=== PATIENT | female | born 1955 | race Caucasian/White ===

== ENCOUNTER → 2019-08-01 | Outpatient (CLI) | payer SELFPAY ==
--- NOTE | 2019-08-04 08:03 | PE ---
Nuclear medicine PET/CT HISTORY: Lung carcinoma, initial Patient received 10.2 mCi F-18 FDG intravenously in delayed scanning was performed from the skull bas e to the mid thighs. Localization and attenuation correction CT scan was performed. No comparisons Postop changes are noted in the brain. Neck and chest: There is no evident cervical or supraclavicular adenopathy. Superior mediastinal eleazar opathy with associated hypermetabolic uptake, SUV 18, bilateral hilar adenopathy with SUV on the righ t 15, on the left 11.6, subcarinal adenopathy, SUV 12.2 prevascular adenopathy with associated hyperm etabolic uptake is noted, SUV 14.6. Large left lower lobe lung mass is present with associated hyperm etabolic uptake, SUV 16.4. There is a pericardial effusion. Coronary artery calcifications are presen t. No axillary adenopathy. An level posterior to the inferior aspect of the left hard adjacent to the aorta there is soft tissue mass present with associated hypermetabolic uptake, SUV 8.2. Subpleural n odular density is also present in the left lower lobe posteriorly with associated hypermetabolic upta ke. ABDOMEN: Bilateral adrenal enlargement is present with associated hypermetabolic uptake, SUV 15.7 on the right, 8.7 on the left. There is no retroperitoneal adenopathy, no evident liver mass. The level of the lesser curvature of the stomach suspect there is an enlarged node present, there is associated hypermetabolic uptake, SUV 6.6. Bowel uptake is felt likely to be physiologic. Osseous structures: The posterior right ilium shows a lytic mass, there is associated hypermetabolic uptake present, SUV 20.1. IMPRESSION: Findings consistent with metastatic disease.
== END | disposition home or self-care (01) ==
LOC: RADPETMAIN 11:40
PROVIDERS: ATTEND Internal Medicine Hematology & Oncology
DX: C34.32 Malignant neoplasm of lower lobe, left bronchus or lung (principal)
CPT/HCPCS: 78815; A9552

== ENCOUNTER → 2019-08-29 | Outpatient (CLI) | payer MEDICARE ==
--- NOTE | 2019-08-29 09:57 | CT ---
EXAMINATION TYPE: CT brain wo/w con DATE OF EXAM: 08/29/2019 COMPARISON: Previous PET/CT dated 08/01/2019. HISTORY: Malignant neoplasm of lower lobe, left bron CT DLP: 2161 mGycm Automated exposure control for dose reduction was used. FINDINGS: There is an area of encephalomalacia in the anterior temporal lobe. There are vascular clips in this location. There is no definite abnormal enhancement through this region. Otherwise Central structures are midline. There is no evidence of hydrocephalus. There is mild ex vac uo enlargement of the frontal horn of the left lateral ventricle. There is no mass effect, midline sh ift or intracranial blood. There is been a previous left temporal craniotomy. Visualized portions of the paranasal sinuses and m astoids are clear. IMPRESSION: 1. NO ACUTE INTRACRANIAL ABNORMALITY. 2. POSTSURGICAL CHANGE.
== END | disposition home or self-care (01) ==
LOC: RADCTMAIN 08:44
PROVIDERS: ATTEND Internal Medicine Hematology & Oncology
DX: C34.32 Malignant neoplasm of lower lobe, left bronchus or lung (principal); Z98.890 Other specified postprocedural states
CPT/HCPCS: 70470; Q9967

== ENCOUNTER → 2019-08-29 | Outpatient (CLI) | payer MEDICARE ==
--- NOTE | 2019-08-29 09:56 | CT ---
EXAMINATION TYPE: CT chest wo con DATE OF EXAM: 08/29/2019 COMPARISON: PET/CT dated 08/01/2019 HISTORY: Mesothelioma of pleura CT DLP: [address] of the chest was performed with lung and mediastinal window settings submitted. The la ck of contrast limits evaluation of the vascular, mediastinal and parenchymal structures including th e upper abdomen. LUNGS: Large lobulated left lower lobe mass with pleural extension which is difficult to measure sixto ures an estimated 7.1 x 7.8 x 4.9 cm. There are several adjacent satellite nodules identified measuri ng 3.5 x 1.8 cm inferior laterally additional nodule is seen cranially measuring 1.9 cm. Left hilar c onglomerate adenopathy measures 3.9 x 2.2 cm inferiorly and 3.6 x 2.2 cm superiorly. Additional nodul e 1.3 cm caudal to the dominant mass and 1.6 cm medially with pleural base. 4 mm nodule identified ri ght lower lobe laterally on image 50. MEDIASTINUM/EASTON: 3.0 x 4.9 cm right paratracheal adenopathy identified is progressive. Subcarinal ad enopathy is noted measured 2.5 x 3.3 cm. AP window adenopathy measures 1.8 cm short axis. Low left pa ratracheal adenopathy measures 1.8 cm. Precarinal adenopathy measures 1.8 cm. UPPER ABDOMEN: Bilateral adrenal masses noted measuring 1.9 x 1.85 cm and 2.4 x 3.0 cm on the right. OTHER: No significant other abnormality. IMPRESSION: 1. Difficult to measure multilobulated mass left lower lobe pleural extension and adjacent satellite nodules. There is extensive left hilar and mediastinal adenopathy. Metastatic disease noted to the a drenal glands which have enlarged since prior study..
== END ==
LOC: RADCTMAIN 08:49
PROVIDERS: ATTEND Internal Medicine Sleep Medicine
DX: C45.0 Mesothelioma of pleura (principal); R91.8 Other nonspecific abnormal finding of lung field; R59.0 Localized enlarged lymph nodes
CPT/HCPCS: 71250